=== PATIENT | female | born 1975 | race Caucasian/White ===

== ENCOUNTER → 2018-11-23 | Outpatient (CLI) | payer OTHER ==
[~2018-11-23] MED LIST: ALBU8.5H12 IH; CIP500 PO; CIPR-326 PO; ESTR-95 TD; FAM20 PO; HORMONE PATCH; HYDR2TAB41 PO; IBU600 PO; IBUP800T37 PO; LOR5 PO; LOR5/325 PO; METR-1 PO; OXYC-865 PO; PHENA200 PO; PRED-1 PO; PROM25S RC; [UNRECOGNIZED DRUG - CODE] MC; [UNRECOGNIZED DRUG - OTHER]; [UNRECOGNIZED DRUG - REMARK]
== END ==
LOC: LAB 19:19
PROVIDERS: ATTEND Urology
DX: N39.0 Urinary tract infection, site not specified (principal)
CPT/HCPCS: 87088

== ENCOUNTER → 2018-12-15 | Outpatient (CLI) | payer OTHER ==
--- NOTE | 2018-12-15 11:05 | RADIOLOGY IMAGING REPORT ---
FACILITY: [facility] PATIENT NAME: Jesi Li : 1975 MR: [id number] V: [id number] EXAM DATE: ORDERING PHYSICIAN: EDISON CULP TECHNOLOGIST: Location: [facility] Patient: Jesi Li : 1975 Visit/Account:[id number] Date of Sevice: 12/15/2018 KIDNEYS EXAMINATION: Renal ultrasound. History: Recurrent UTIs ( six in the last year), hematuria COMPARISON STUDIES: CT abdomen and pelvis September 11, 2017 FINDINGS: Kidneys: Right kidney- 9.6 x 5.2 x 6.5 cm Left kidney- 10.9 x 6 x 6.8 cm Uniform and symmetric blood flow in each kidney by Doppler ultrasound. Hydronephrosis: none Resistive index on the right 0.64 and on the left 0.59 Bladder: Prevoid volume 268 mL. Post for residual 27 mm. Bilateral ureteral jets are present. Abdominal aorta and IVC: Not evaluated IMPRESSION: Unremarkable renal ultrasound Report Dictated By: Kinjal Hernandez MD at 12/15/2018 10:59 AM Report E-Signed By: Kinjal Hernandez MD at 12/15/2018 11:01 AM WSN:DM
== END ==
LOC: US 01:07
PROVIDERS: ATTEND Urology
DX: N39.0 Urinary tract infection, site not specified (principal); R30.0 Dysuria
CPT/HCPCS: 76705

== ENCOUNTER → 2019-02-18 | Outpatient (CLI) | payer OTHER ==
--- NOTE | 2019-02-18 08:47 | RADIOLOGY IMAGING REPORT ---
FACILITY: [facility] [place] PATIENT NAME: Jesi Li : 1975 MR: [id number] V: [id number] EXAM DATE: ORDERING PHYSICIAN: CASH GORDILLO TECHNOLOGIST: Location: [facility] [place] Patient: Jesi Li : 1975 Visit/Account:[id number] Date of Sevice: 02/18/2019 Exam type: CHEST PA LAT History: Shortness of breath and chest pain Comparison: October 24, 2013. Findings: The lungs are free of acute effusions, infiltrates or edema. There is no evidence of a pneumothorax or pneumomediastinum. The cardiac silhouette is normal in size. The trachea is in midline. There a re surgical clips the right upper quadrant abdomen. There is a minimal S-shaped scoliosis of the tho racic spine IMPRESSION: 1. No acute cardiopulmonary process is seen Report Dictated By: Kinjal Hernandez MD at 02/18/2019 8:42 AM Report E-Signed By: Kinjal Hernandez MD at 02/18/2019 8:43 AM WSN:[id number]
== END ==
LOC: RAD 08:15
PROVIDERS: ATTEND Nurse Practitioner Family
DX: R07.9 Chest pain, unspecified (principal); R06.02 Shortness of breath
CPT/HCPCS: 71046